=== PATIENT | male | born 1995 | race Caucasian/White ===

== ENCOUNTER 2022-01-16 13:09 | Emergency (ER) | payer MEDICAID ==
[~2022-01-16] VITALS: Ht 177.8 cm; Wt 80.0 kg
[2022-01-16 13:20] VITALS: BP 135/84
[2022-01-16] MEDS ORDERED: DOLU1TAB2 PO (13:51)
[2022-01-16] MEDS ORDERED: VIRE MT (13:51)
== END 2022-01-16 14:38 | disposition home or self-care (01) ==
LOC: ER 13:09
DX: Z76.0 Encounter for issue of repeat prescription (principal)
CPT/HCPCS: 99283